=== PATIENT | male | born 1985 | race African-American/Black ===

== ENCOUNTER 2022-09-07 10:25 | Emergency (ER) | payer SELFPAY ==
[2022-09-07 10:34] VITALS: BP 130/78; PULSE 68; RESP 20; TEMP 98.2; BMI 21.6
[2022-09-07] MEDS ORDERED: ACETAMINOPHEN 325 MG TABLET (FP) PO ONE (11:06)
[2022-09-07] MEDS ORDERED: IBUPROFEN 600 MG TABLET (FP) PO ONE ×2 (11:06→11:22)
[2022-09-07] MEDS ORDERED: ACETAMINOPHEN 325 MG TABLET (FP) ONE (11:22)
== END 2022-09-07 12:18 | disposition home or self-care (01) ==
LOC: JERFT 10:25
DX: K08.89 Other specified disorders of teeth and supporting structures (principal); M27.2 Inflammatory conditions of jaws
CPT/HCPCS: 99283-25